=== PATIENT | male | born 1980 | race Caucasian/White ===

== ENCOUNTER → 2021-02-27 | Outpatient (CLI) | payer OTHER | LOC: KOH-I 12:04 | DX: M51.36 Other intervertebral disc degeneration, lumbar region (principal); M47.816 Spondylosis without myelopathy or radiculopathy, lumbar region | CPT/HCPCS: 72100 ==

== ENCOUNTER 2021-05-04 22:25 | Emergency (ER) | payer OTHER | END 2021-05-05 03:41 | disposition home or self-care (01) | LOC: ER1 22:25 | DX: M54.41 Lumbago with sciatica, right side (principal); I10 Essential (primary) hypertension | CPT/HCPCS: 96372; 99283; J1885; J2360 ==